=== PATIENT | male | born 1975 | race Caucasian/White ===

== ENCOUNTER 2017-12-17 15:53 | Emergency (ER) | payer BC ==
[~2017-12-17] VITALS: Ht 182.9 cm; Wt 225.9 kg
[~2017-12-17 15:53] MED LIST: AMITRIPTYLINE H75 M1 PO; CLONAZEPAM 0.50.5 M1 PO; COLACE100 MG; CYCLOBENZAPRINE5 MG; FLEXERIL PO; HYDROCODONE-AP1 EA11; IBUPROFEN 800800 M1; LISINOPRIL20 MG PO; LOVASTAT20 PO; MOBIC15 MG PO; NEURONTIN 300300 M1 PO; PANTOPRAZOLE SO40 M1 PO; PERCOCET 7.5-31 EACH PO; PHENTERMINE H37.5 MG; RANITIDINE 150150 M1; SENNA-S TABLET1 EACH PO; TRAMADOL 50 MG50 MG PO; TRAZODONE 150150 M1 PO; TRAZODONE HCL100 MG PO; TRIAMTERENE-HC1 EAC1 PO; VALTREX1000 MG PO; VIAGRA100 MG PO
[2017-12-17 16:40] LABS: ABSOLUTE BASOPHILS 0.1 thou/uL (0.0-0.2); ABSOLUTE EOSINOPHILS 0.2 thou/uL (0.0-0.7); ABSOLUTE LYMPHOCYTES 2.8 thou/uL (0.8-5.3); ABSOLUTE MONOCYTES 0.8 thou/uL (0.0-1.2); ABSOLUTE NEUTROPHILS 5.8 thou/uL (1.6-8.1); BASOPHILS 1.1 %; EOSINOPHILS 1.8 %; HEMATOCRIT 42.8 % (42.0-52.0); HEMOGLOBIN 14.3 gm/dL (14.0-18.0); LYMPHOCYTES 28.5 %; MCH 28.6 pg (26.0-34.0); MCHC 33.3 g/dL (28.0-37.0); MCV 85.8 fL (80.0-100.0); MONOCYTES 8.7 %; MPV 8.9 fl. (7.2-11.1); NUCLEATED RBCS 0 /100WBC; PLATELET COUNT* 218 thou/uL (150-400); POLYS 59.9 %; RBC 4.99 mil/uL (4.50-6.00); WBC 9.7 thou/uL (4.0-11.0)
[2017-12-17 16:47] LABS: ANION GAP 9 mmol/L (7-16); BUN 12 mg/dL (7-18); CALCIUM 9.3 mg/dL (8.5-10.1); CHLORIDE 102 mmol/L (98-107); CO2 26 mmol/L (21-32); CREATININE 0.9 mg/dL (0.6-1.3); GLUCOSE 168 mg/dL (70-99); POTASSIUM 3.9 mmol/L (3.5-5.1); SODIUM 137 mmol/L (136-145)
[2017-12-17 16:51] LABS: APTT 28.5 Seconds (25.0-31.3); PROTIME 9.9 Seconds (9.20-11.50)
[2017-12-17 17:02] LABS: ALBUMIN 3.4 g/dL (3.4-5.0); ALKALINE PHOSPHATASE 93 U/L (46-116); NT-PRO BRAIN NAT PEPTIDE 26 pg/mL (<300); SGOT 51 U/L (15-37); SGPT 88 U/L (30-65); TOTAL BILIRUBIN 0.4 mg/dL (<0.1-1.0); TOTAL PROTEIN 7.3 g/dL (6.4-8.2); TROPONIN-I LEVEL <0.06 ng/mL (<0.06)
[2017-12-17 17:22] LABS: URINE BILIRUBIN NEGATIVE (Negative); URINE BLOOD TRACE (Negative); URINE CLARITY CLEAR; URINE COLOR STRAW; URINE GLUCOSE-RANDOM NEGATIVE (Negative); URINE KETONES NEGATIVE (Negative); URINE LEUKOCYTES NEGATIVE (Negative); URINE NITRITE NEGATIVE (Negative); URINE PROTEIN NEGATIVE (Negative); URINE UROBILINOGEN 0.2 E.U./dl (0.2-1.0)
[2017-12-17 17:30] LABS: AMP/METHAMP Negative (Negative); BARBITURATES Negative (Negative); BENZODIAZEPINES Negative (Negative); COCAINE Negative (Negative); METHADONE Negative (Negative); OPIATES Negative (Negative); PCP Negative (Negative); THC Negative (Negative)
[2017-12-17] MEDS ORDERED: VISTARIL 25 MG25 M1 PO (18:36)
[2017-12-17 18:42] VITALS: BP 121/76
--- NOTE | 2017-12-18 15:56 | EKG ---
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: : 1975 Requested By: Yamilex Dumont Order Number: [id number] MD: Dhaval De Luna Measurements Intervals [place] Rate: 103 P: 38 AL: 153 QRS: -30 QRSD: 99 T: 56 QT: 318 QTc: 416 Interpretive Statements Sinus tachycardia Left axis deviation Low voltage, precordial leads Baseline wander in lead(s) V6 Compared to ECG 05/26/2013 11:52:04 Left-axis deviation now present Low QRS voltage now present Electronically Signed On 12-18-2017 15:55:59 CDT by Dhaval De Luna [email or web address] <ELECTRONICALLY SIGNED> By: Dhaval De Luna MD, [facility] 12/18/17 1555 1558 1558 Dhaval De Luna MD, [facility] /EPI
[2018-02-13] MEDS ORDERED: TRULICITY1.5 MG/0.5 SUBQ (09:39)
[2018-02-13] MEDS ORDERED: METFORMIN HCL500 MG PO (09:40)
== END 2017-12-17 18:43 | disposition home or self-care (01) ==
LOC: M.ERS 15:53
PROVIDERS: Nurse Practitioner Family
DX: R06.00 Dyspnea, unspecified (principal); R07.9 Chest pain, unspecified; R60.0 Localized edema; I10 Essential (primary) hypertension; E78.5 Hyperlipidemia, unspecified; K21.9 Gastro-esophageal reflux disease without esophagitis

== ENCOUNTER 2018-01-15 14:18 | Inpatient (IN) | payer BC ==
[~2018-01-15] VITALS: Ht 182.9 cm; Wt 228.2 kg
[~2018-01-15 14:18] MED LIST changes: +VISTARIL 25 MG25 M1 PO
[2018-01-15 14:31] VITALS: BP 146/86
[2018-01-15] MEDS ORDERED: VENTOLIN HFA 1818 GM INH (14:38)
[2018-01-15] MEDS ORDERED: ASPIRIN81 M2 PO (14:38)
[2018-01-15] MEDS ORDERED: BACTRIM DS TAB1 EACH PO (14:39)
[2018-01-15] MEDS ORDERED: LASIX 20 MG TAB20 MG PO (14:39)
[2018-01-15] MEDS ORDERED: ERGOCALCIF50000 UNIT PO (14:39)
[2018-01-15 15:06] LABS: ABSOLUTE BASOPHILS 0.1 thou/uL (0.0-0.2); ABSOLUTE EOSINOPHILS 0.2 thou/uL (0.0-0.7); ABSOLUTE LYMPHOCYTES 2.2 thou/uL (0.8-5.3); ABSOLUTE MONOCYTES 0.9 thou/uL (0.0-1.2); ABSOLUTE NEUTROPHILS 6.6 thou/uL (1.6-8.1); BASOPHILS 0.5 %; EOSINOPHILS 2.1 %; HEMATOCRIT 43.3 % (42.0-52.0); HEMOGLOBIN 14.3 gm/dL (14.0-18.0); LYMPHOCYTES 22.1 %; MCH 28.7 pg (26.0-34.0); MCHC 33.1 g/dL (28.0-37.0); MCV 86.9 fL (80.0-100.0); MONOCYTES 9.2 %; MPV 8.7 fl. (7.2-11.1); NUCLEATED RBCS 0 /100WBC; PLATELET COUNT* 264 thou/uL (150-400); POLYS 66.1 %; RBC 4.98 mil/uL (4.50-6.00); RDW-CV 15.2 % (10.5-14.5); WBC 9.9 thou/uL (4.0-11.0)
[2018-01-15 15:32] LABS: ALBUMIN 3.5 g/dL (3.4-5.0); CALCIUM 9.3 mg/dL (8.5-10.1); CREATININE 1.1 mg/dL (0.6-1.3); POTASSIUM 4.2 mmol/L (3.5-5.1); TOTAL BILIRUBIN 0.3 mg/dL (<0.1-1.0); TOTAL PROTEIN 7.4 g/dL (6.4-8.2)
[2018-01-15 16:01] LABS: PROTIME 9.7 Seconds (9.20-11.50)
[2018-01-15 17:43] VITALS: BP 146/86
[2018-01-15 17:48] VITALS: BP 122/81
--- NOTE | 2018-01-15 18:46 | NUR ---
PATIENT CAME TO THE FLOOR FROM THE ER VIA CART. VITAL SIGNS STABLE ON ROOM AIR, SOME COMPLAINTS OF PAIN THAT IS CONTROLLED WITH POWDER AND ORAL PAIN MEDICATIONS. ORIENTED TO ROOM, CALL LIGHT IN REACH, ADMISSION ASSESSMENT AND QUESTIONS ANSWERED FOR PATIENT. WILL CONTINUE TO MONITOR.
[2018-01-16 00:12] VITALS: BP 134/82
--- NOTE | 2018-01-16 05:03 | NUR ---
ASSESSMENT COMPLETE. PT SLEPT MOST OF THE NIGHT. PT DENIES NEED FOR PRN PAIN MEDICATION. IV FLUIDS INFUSING, IV ABX GIVEN ORDERED. PT STARTED ON METFORMIN TONIGHT. PT NEW ONSET OF DIABETES AND HAS NO TAKEN ANY MEDICATION FOR THIS. PT HAS DIABETIC AND NURTRITION CONSULTS ORDERED. PT IS ON ROOM AIR WITH ADEQUATE SATS, VITALS STABLE. PT HAS BEEN AFEBRILE. PT IS UP AD MARY ALICE WITH STEADY GAIT. SEE ASSESSMENT AND VITALS FOR OTHER DETAILS. CALL LIGHT WITHIN REACH, WILL CONTINUE PLAN OF CARE
[2018-01-16 08:00] VITALS: BP 139/83
[2018-01-16 08:14] LABS: URINE BILIRUBIN NEGATIVE (Negative); URINE BLOOD NEGATIVE (Negative); URINE CLARITY CLEAR; URINE COLOR ORANGE; URINE GLUCOSE-RANDOM NEGATIVE (Negative); URINE KETONES NEGATIVE (Negative); URINE LEUKOCYTES-REFLEX NEGATIVE (Negative); URINE NITRITE-REFLEX NEGATIVE (Negative); URINE PROTEIN NEGATIVE (Negative); URINE UROBILINOGEN 0.2 E.U./dl (0.2-1.0)
[2018-01-16 10:00] LABS: ABSOLUTE BASOPHILS 0.1 thou/uL (0.0-0.2); ABSOLUTE EOSINOPHILS 0.2 thou/uL (0.0-0.7); ABSOLUTE LYMPHOCYTES 2.7 thou/uL (0.8-5.3); ABSOLUTE MONOCYTES 0.6 thou/uL (0.0-1.2); ABSOLUTE NEUTROPHILS 5.4 thou/uL (1.6-8.1); EOSINOPHILS 2.5 %; HEMATOCRIT 40.3 % (42.0-52.0); HEMOGLOBIN 13.3 gm/dL (14.0-18.0); LYMPHOCYTES 29.7 %; MCH 28.7 pg (26.0-34.0); MCHC 33.1 g/dL (28.0-37.0); MCV 86.8 fL (80.0-100.0); MPV 8.7 fl. (7.2-11.1); NUCLEATED RBCS 0 /100WBC; PLATELET COUNT* 246 thou/uL (150-400); POLYS 59.8 %; RBC 4.64 mil/uL (4.50-6.00); RDW-CV 14.9 % (10.5-14.5)
[2018-01-16 10:13] LABS: ALBUMIN 3.1 g/dL (3.4-5.0); CALCIUM 8.3 mg/dL (8.5-10.1); POTASSIUM 4.2 mmol/L (3.5-5.1); TOTAL BILIRUBIN 0.3 mg/dL (<0.1-1.0); TOTAL PROTEIN 6.7 g/dL (6.4-8.2)
[2018-01-16 15:07] LABS: GLYCOHEMOGLOBIN (HGB A1C) 8.2 % (4.8-5.6)
--- NOTE | 2018-01-16 15:32 | NUR ---
WOUND CARE NOTE: CONSULT RECEIVED FOR SCROTAL WOUND CARE. PATIENT PRESENTS WITH SCROTAL AND ABDOMINAL CELLULITIS. SCROTUM IS EDEMATOUS AND INFLAMMED. NO OPEN WOUNDS NOTED. ABDOMEN WITH A COUPLE OF SCABS, BUT ARE INTACT. PATIENT STATES ABDOMEN IS NUMB AND HAS BEEN FOR A FEW WEEKS. STATES HIS ABDOMEN WAS SORE BEFORE HIS SCROTUM BECAME THIS WAY. EDUCATED PATIENT ON KEEPING BLOOD GLUCOSE TIGHTLY CONTROLLED AND THIS WOULD ASSIST WITH THE WOUND HEALING AND HELP WITH PREVENTING IN THE FUTURE, COMMUNICATED UNDERSTANDING. EDUCATED ON KEEPING SCROTUM ELEVATED AND COULD USE PILLOWS OR BLANKETS, THAT THIS WOULD HELP REDUCE THE SWELLING, COMMUNICATED UNDERSTANDING. PATIENT INQUIRED ON HEALING TIME, EDUCATED THAT IT MAY TAKE A FEW WEEKS FOR EVERYTHING TO GET BACK TO NORMAL. EDUCATED THAT IT MAY TAKE A FEW DAYS FOR HIM TO START HAVING LESS PAIN. RECOMMEND ELEVATE SCROTUM TIGHT BLOOD GLUCOSE CONTROL ENCOURAGE GOOD NUTRITION AND HYDRATION
--- NOTE | 2018-01-16 15:40 | NUR ---
WOUND CARE NOTE: DRESSING CHANGE TO RIGHT LEG. PATIENT PRESENTS WITH NEW WOUNDS TO THE RIGHT RUBIO. PROXIMAL, CENTER AND DISTAL. DISTAL WAS PREVIOUSLY A STABLE SCAB, BUT NOW HAS OPENED INTO AN ULCERATION. THIS ULCER MEASURES 3.1X1X0.4, MOIST PINK WOUND BED. DRAINING SEROUS FLUID. APPLIED OPTIFOAM AG, THEN SECURED WITH THE 4-LAYER WRAP. CENTER WOUND APPEARS A PARTIAL THICKNESS WOUND MEASURING 1.3X1.7X0.1. RED, MOIST WOUND BED, APPLIED OPTIFOAM AG UNDER A 4-LAYER WRAP. THE MOST PROXIMAL WOUND IS HEALING, MOIST, PINK WOUND BED MEASURING 1.5X0.4X0.1 APPLIED OPTIFOAM UNDER A 4-LAYER WRAP. APPLIED DRESSINGS TO OTHER WOUNDS DIRECTED. PATIENT TOLERATED DRESSING CHANGES WELL.
--- NOTE | 2018-01-16 17:10 | NUR ---
SW met with pt to complete initial assessment, introduce self, and SW role. Pt was sleeping, but awoke and was alert and oriented. Pt lives at home alone and was independent in ADLs and mobility and did not express any dc needs. Pt said his father is supportive and taking care of his dogs while pt is in the hospital. SW to follow to assist if any needs arise.
--- NOTE | 2018-01-16 18:51 | NUR ---
ASSUMED CARE THIS AM. UP AD MARY ALICE, DOES C/O SCROTAL EDEMA, SKIN INTACT, NYSTATIN APPLIED LIBERALLY. WOUND NURSE CONSULT COMPLETED, NO NEW ORDERS, UROLOGY CONSULT COMPLETED, WILL FOLLOW UP OUTPT. FAMILY AT BEDSIDE, DISCOMFORT MANAGED WELL WITH ORAL MEDICATION. NYASIA IV ABT AND IVF WITHOUT DIFF. CALL LIGHT IN REACH, CONT POC.
[2018-01-16 20:30] VITALS: BP 151/88
[2018-01-17 04:12] LABS: HEMATOCRIT 39.9 % (42.0-52.0); HEMOGLOBIN 13.2 gm/dL (14.0-18.0); MCH 28.6 pg (26.0-34.0); MCHC 33.1 g/dL (28.0-37.0); MCV 86.4 fL (80.0-100.0); RBC 4.62 mil/uL (4.50-6.00); WBC 8.2 thou/uL (4.0-11.0)
[2018-01-17 04:28] LABS: ALBUMIN 2.9 g/dL (3.4-5.0); CALCIUM 8.7 mg/dL (8.5-10.1); MAGNESIUM 1.7 mg/dL (1.8-2.4); POTASSIUM 4.4 mmol/L (3.5-5.1); TOTAL BILIRUBIN 0.3 mg/dL (<0.1-1.0); TOTAL PROTEIN 6.2 g/dL (6.4-8.2)
--- NOTE | 2018-01-17 06:21 | NUR ---
PT SLEPT AT INTERVALS DURING THE NIGHT, IV FLUIDS INFUSED, NEW IV PLACED THIS AM, SCROTUM ELEVATED WHILE IN CHAIR, ESTHER CARE DONE AND NYSTATIN APPLIED LAST NIGHT AND THIS MORNING, UP AD MARY ALICE, PLEASANT, CALL LIGHT IN REACH, WILL CONTINUE TO MONITOR
[2018-01-17 08:00] VITALS: BP 143/68
[2018-01-17 16:08] VITALS: BP 130/79
--- NOTE | 2018-01-17 17:14 | CON ---
[address] [address] CONSULTATION Name: HUMA AGUILERA Room: [address] IN .#: [id number] Admission: 01/15/18 Attend Phys: Yoselin Oscar MD Discharge: Date of : 71 Report #: [id number] THIS REPORT FOR: //name// CC: Yoselin Abrams DATE OF SERVICE: 01/16/2018 UROLOGY CONSULTATION REASON FOR CONSULTATION: Scrotal cellulitis. HISTORY OF PRESENT ILLNESS: The patient is a 42-year-old morbidly obese gentleman who was admitted for evaluation of worsening scrotal pain and swelling. He was placed on oral antibiotics by his PCP without improvement. He denies any fever. He has a new diagnosis of diabetes. He reports no trauma. It just suddenly started 2 days ago. PAST MEDICAL HISTORY: Significant for diabetes, anxiety, asthma, dyspnea, hypertension, sleep apnea, hypercholesterolemia, morbid obesity, left inguinal hernia, peripheral edema, GERD, hypogonadism. PAST SURGICAL HISTORY: Includes hernia repairs, ACL repair and shoulder surgery. MEDICATIONS AT HOME: Were reviewed. Please see inpatient medical record. REVIEW OF SYSTEMS: Twelve-point review of systems is performed and is negative except as noted above in the HPI. FAMILY HISTORY: Noncontributory. SOCIAL HISTORY: The patient denies tobacco use. Drinks alcohol on special occasions. Denies recreational drug use. ALLERGIES: None. PHYSICAL EXAMINATION: VITAL SIGNS: Temperature is 36.8. He has been afebrile since admission yesterday. Pulse is 90, blood pressure 139/83, respirations 20. HEENT: Normocephalic, atraumatic. LUNGS: Respirations unlabored. HEART: Regular. ABDOMEN: Soft, morbidly obese, nontender. He has extremely large pannus. EXTREMITIES: He has peripheral edema. GENITOURINARY: He has moderate to severe scrotal edema. [place] [address] CONSULTATION Name: HUMA AGUILERA Room: [address] IN [facility]#: [id number] Admission: 01/15/18 Attend Phys: Yoselin Oscar MD Discharge: Date of : 71 Report #: [id number] somewhat erythematous, but not overly impressive. There is no fluctuance or evidence of abscess. There is no evidence of any Magdaleno gangrene. Perineum is intact. NEUROLOGIC: He is intact. LABORATORY DATA: His white count is normal at 9.0, hemoglobin is 13.3, platelets 246. His BMP is essentially normal with a creatinine of 1.0. His sugars have been in the 100s-200s. Urinalysis is completely negative. He had a testicular ultrasound today, which showed normal bilateral testes and epididymis. No hydrocele, but did show marked thickening of the scrotal skin. No evidence of any abscess. ASSESSMENT AND PLAN: 1. Scrotal cellulitis. 2. Scrotal edema. 3. Morbid obesity. At this time, there appears to be nothing surgical. Agree with antibiotics to cover cellulitis. In terms of his scrotal edema, there is really nothing to do for this other than scrotal elevation. It is not uncommon for morbidly obese men such as he to have chronic scrotal edema. <ELECTRONICALLY SIGNED> By: Tash Mendoza MD 01/17/18 1714 [id number] [id number] Mendoza MD /nt
--- NOTE | 2018-01-17 18:53 | NUR ---
RESUMED CARE THIS AM. DISCOMFORT MANAGED WELL WITH ORAL MEDICATION, BLOOD SUGAR MANAGED WELL WITH DIET AND INSULIN. UP AD MARY ALICE, TO CHAIR FOR MEALS, NYASIA IVF AND IV ANTIBIOTICS. COMPLIANT WITH CARE, CALL LIGHT IN REACH, CONT POC.
[2018-01-17 23:49] VITALS: BP 109/55
--- NOTE | 2018-01-18 04:44 | NUR ---
PATIENT HAS REMAINED ALERT AND ORIENTED X 4 THROUGHOUT THE SHIFT. RESTING QUIETLY ON HOURLY ROUNDS. UP EARLY AM IN CHAIR. PATIENT HAS KEPT SCROTUM ELEVATED WHILE IN BED OVERNIGHT. HAS DENIED NEED FOR PAIN MEDICATION. MEDS/IVF'S/ANTIBIOTICS PER ORDERS. PATIENT REPORTING IMPROVED EDEMA AND REDDNESS OF SCROTUM. NYSTATIN POWDER ALSO UTILIZED. VITAL SIGNS STABLE. CONTINUE TO MONITOR.
[2018-01-18 10:01] VITALS: BP 118/64
[2018-01-18 16:11] VITALS: BP 152/87
--- NOTE | 2018-01-18 18:55 | NUR ---
RESUMED CARE THIS AM. NO DISTRESS NOTED, SCROTUM LOOKS MUCH BETTER, NYASIA IV FLUIDS AND ABT WELL, GLUCOSE MANAGED WELL WITH MEDICATION, ANTICIPATE DISCHARGE TO HOME TOMORROW, DENIES PAIN, CALL LIGHT IN REACH, CONT POC.
[2018-01-19 00:39] VITALS: BP 141/90
--- NOTE | 2018-01-19 04:40 | NUR ---
PATIENT HAS REMAINED ALERT AND ORIENTED X 4 THROUGHOUT THE SHIFT AND RESTING QUIETLY ON HOURLY ROUNDS. UP INDEPENDENTLY IN THE ROOM. SLOW IMPROVEMENT SCROTAL EDEMA/REDDNESS. PATIENT KEEPS SCROTUM ELEVATED WHEN IN BED. IVF'S AND ANTIBIOTIC/ANTI-FUNGAL PROVIDED ORDERED. VITAL SIGNS STABLE/AFEBRILE. PATIENT IS HOPING FOR EARLY DISCHARGE THIS AM. MESSAGE TO CM REGARDING PATIENT REQUEST FOR ASSIST IN GETTING INFOMATION ON INSURANCE COVERAGE OF DIABETIC SUPPLIES. PATIENT STATES HE WAS IN THE PROCESS OF SETTING UP DIABETIC EDUCATION WITH HIS PRIMARY PHYSICIAN WHEN WAS ADMITTED TO HOSPITAL. CONTINUE TO MONITOR.
[2018-01-19 08:00] VITALS: BP 135/71
[2018-01-19 09:50] VITALS: BP 135/71
[2018-01-19] MEDS ORDERED: GLUCOTROL5 MG PO (10:04)
[2018-01-19] MEDS ORDERED: HYDROCODON-ACE1 EAC7 PO (10:04)
[2018-01-19] MEDS ORDERED: NYAMYC15 GM TOP ×2 (10:04→10:26)
[2018-01-19] MEDS ORDERED: DOXYCYCLINE 10100 MG PO ×2 (10:04→10:26)
[2018-01-19] MEDS ORDERED: DIFLUCAN200 MG PO (10:07)
[2018-01-19] MEDS ORDERED: DIFLUCAN100 MG PO (10:27)
[2018-01-19] MEDS ORDERED: HYDROCODONE-AP1 EAC6 PO (10:28)
[2018-01-19 10:31] VITALS: BP 135/71
[2018-01-19 10:33] VITALS: BP 135/71
--- NOTE | 2018-01-19 11:48 | NUR ---
Pt to dc home alone today. Since newly diagnosed diabetes, pt being sent home with glucometer and test strips; pt wanted to make sure that his test strips will be covered by his insurance and that the glucometer he was issued would be the correct match to the covered test strips. [facility] that was [facility] in pt insurance and was told that they use One Touch or Easy Touch. PIA discussed with pt who said he changed his pharmacy to [facility] pharmacy on at [facility] in [place], [place]. Pt said he would call to make sure of the preferred test strips brand and pt aware that he could purchase a different glucometer if necessary. Pt did not have any other needs or concerns and was ready to dc.
[2018-01-19 12:18] VITALS: BP 135/71
--- NOTE | 2018-01-19 12:18 | NUR ---
ALERT AND ORIENTED X4. UP AD MARY ALICE IN ROOM. IV DC'D. DENIES NEED FOR PAIN MEDICATION. DENIES NAUSEA. TOLERATING DIET. GLUCOMETER RECIEVED AT DC. ALL PERSONAL ITEMS LEFT WITH PATIENT. DISCHARGE INSTRUCTIONS, PRESCRIPTIONS, AND NEW MEDICATION INFORMATION SENT WITH PATIENT. VSS ON ROOM AIR. HOURLY ROUNDS HAVE BEEN MAINTAINED THROUGHOUT SHIFT. LEFT VIA CAR.
[2018-02-13] MEDS ORDERED: TRULICITY1.5 MG/0.5 SUBQ (09:39)
[2018-02-13] MEDS ORDERED: METFORMIN HCL500 MG PO (09:40)
== END 2018-01-19 12:00 | disposition home or self-care (01) | DRG 728 ==
LOC: M.ERS 14:18 → M.3W 16:43 → M.TBA-ER 16:43 → M.3W 17:35 → M.ORTHSURG 01-16 15:44
PROVIDERS: Nurse Practitioner Family; ADMIT Internal Medicine
DX: N49.2 Inflammatory disorders of scrotum (principal); Z68.44 Body mass index [BMI] 60.0-69.9, adult; R65.10 Systemic inflammatory response syndrome (SIRS) of non-infectious origin without acute organ dysfunction; L03.311 Cellulitis of abdominal wall; E66.01 Morbid (severe) obesity due to excess calories; I10 Essential (primary) hypertension; E78.5 Hyperlipidemia, unspecified; K21.9 Gastro-esophageal reflux disease without esophagitis; G47.00 Insomnia, unspecified; E11.9 Type 2 diabetes mellitus without complications; F41.9 Anxiety disorder, unspecified; J45.909 Unspecified asthma, uncomplicated; E78.00 Pure hypercholesterolemia, unspecified; E83.42 Hypomagnesemia; Z79.899 Other long term (current) drug therapy; Z79.82 Long term (current) use of aspirin

== ENCOUNTER 2018-01-21 12:25 | Inpatient (IN) | payer BC ==
[~2018-01-21] VITALS: Ht 182.9 cm; Wt 224.1 kg
[~2018-01-21 12:25] MED LIST changes: +ASPIRIN81 M2 PO; +BACTRIM DS TAB1 EACH PO; +DIFLUCAN100 MG PO; +DIFLUCAN200 MG PO; +DOXYCYCLINE 10100 MG PO; +ERGOCALCIF50000 UNIT PO; +GLUCOTROL5 MG PO; +HYDROCODON-ACE1 EAC7 PO; +HYDROCODONE-AP1 EAC6 PO; +LASIX 20 MG TAB20 MG PO; +NYAMYC15 GM TOP; +VENTOLIN HFA 1818 GM INH
[2018-01-21 12:40] VITALS: BP 125/87
[2018-01-21 13:14] LABS: ABSOLUTE BASOPHILS 0.1 thou/uL (0.0-0.2); ABSOLUTE EOSINOPHILS 0.2 thou/uL (0.0-0.7); ABSOLUTE LYMPHOCYTES 2.5 thou/uL (0.8-5.3); ABSOLUTE MONOCYTES 0.8 thou/uL (0.0-1.2); ABSOLUTE NEUTROPHILS 6.3 thou/uL (1.6-8.1); BASOPHILS 1.3 %; EOSINOPHILS 2.1 %; HEMATOCRIT 44.4 % (42.0-52.0); HEMOGLOBIN 14.9 gm/dL (14.0-18.0); LYMPHOCYTES 25.1 %; MCH 29.1 pg (26.0-34.0); MCHC 33.6 g/dL (28.0-37.0); MCV 86.6 fL (80.0-100.0); MONOCYTES 7.7 %; MPV 8.7 fl. (7.2-11.1); NUCLEATED RBCS 0 /100WBC; PLATELET COUNT* 283 thou/uL (150-400); POLYS 63.8 %; RBC 5.13 mil/uL (4.50-6.00); RDW-CV 15.1 % (10.5-14.5)
[2018-01-21 13:28] LABS: CALCIUM 9.1 mg/dL (8.5-10.1); POTASSIUM 4.2 mmol/L (3.5-5.1)
[2018-01-21 13:32] LABS: ALBUMIN 3.7 g/dL (3.4-5.0); TOTAL BILIRUBIN 0.4 mg/dL (<0.1-1.0); TOTAL PROTEIN 7.9 g/dL (6.4-8.2)
[2018-01-21 14:00] LABS: URINE BILIRUBIN NEGATIVE (Negative); URINE BLOOD NEGATIVE (Negative); URINE CLARITY CLEAR; URINE COLOR YELLOW; URINE GLUCOSE-RANDOM NEGATIVE (Negative); URINE KETONES NEGATIVE (Negative); URINE LEUKOCYTES-REFLEX NEGATIVE (Negative); URINE NITRITE-REFLEX NEGATIVE (Negative); URINE PROTEIN NEGATIVE (Negative); URINE UROBILINOGEN 0.2 E.U./dl (0.2-1.0)
[2018-01-21 16:30] VITALS: BP 95/67
[2018-01-21 16:55] VITALS: BP 123/88
[2018-01-21 21:20] VITALS: BP 124/94
[2018-01-22 04:47] LABS: HEMATOCRIT 39.7 % (42.0-52.0); HEMOGLOBIN 13.1 gm/dL (14.0-18.0); MCH 28.7 pg (26.0-34.0); MCV 86.9 fL (80.0-100.0); RBC 4.57 mil/uL (4.50-6.00); RDW-CV 14.8 % (10.5-14.5); WBC 9.4 thou/uL (4.0-11.0)
[2018-01-22 04:56] LABS: CALCIUM 8.5 mg/dL (8.5-10.1); CREATININE 0.9 mg/dL (0.6-1.3); MAGNESIUM 1.8 mg/dL (1.8-2.4); POTASSIUM 4.2 mmol/L (3.5-5.1)
[2018-01-22 07:40] VITALS: BP 122/81
[2018-01-22 16:28] VITALS: BP 121/74
[2018-01-22 22:30] VITALS: BP 110/58
[2018-01-23 04:42] LABS: CALCIUM 8.6 mg/dL (8.5-10.1); CREATININE 0.8 mg/dL (0.6-1.3); MAGNESIUM 1.8 mg/dL (1.8-2.4); POTASSIUM 4.7 mmol/L (3.5-5.1)
[2018-01-23 06:05] LABS: HEPATITIS B SURFACE AG Negative (Negative)
--- NOTE | 2018-01-23 07:58 | CON ---
[facility] [address] [place] [address] CONSULTATION Name: HUMA AGUILERA Room: [address] IN M.R.#: [id number] Admission: 01/21/18 Attend Phys: Demetrius Nielsen MD Discharge: Date of : 71 Report #: [id number] THIS REPORT FOR: //name// CC: Candice Kahna Jose Alberto DATE OF SERVICE: 01/22/2018 INFECTIOUS DISEASE CONSULTATION ATTENDING PHYSICIAN: Demetrius Nielsen M.D. REASON FOR EVALUATION: Scrotal cellulitis. HISTORY OF PRESENT ILLNESS: Chart reviewed, patient examined. This is a 42-year-old gentleman who is morbidly obese, complains of pain and marked swelling of his scrotum. Of note, he had noted over the last several weeks having increasing redness associated with large pannus into the scrotum. He thought that this was "due to him being fat." However, he was noted to have some progressive signs and symptoms including pain and was evaluated by primary care provider and felt he had a cellulitis. He was placed on oral therapy, did not improve. On repeat, he was instructed to go to the ER where he was admitted having been discharged earlier this week after 5 days including parenteral antibiotics. He had improved to some degree; however, at home, he noted marked reversal with increasing pain, swelling of the scrotum, in particular. It is not clear if he had systemic illness. He was again readmitted, given dose of vancomycin and fluconazole, not overtly toxic. Denies any pulmonary or gastrointestinal complaints. ALLERGIES: None known. MEDICATIONS: Include ergocalciferol, insulin, fluconazole, furosemide, aspirin, meloxicam, lisinopril, triamterene and hydrochlorothiazide combination, glipizide, pantoprazole, benzonatate, trazodone, atorvastatin, p.r.n. analgesics and antiemetics. PAST MEDICAL HISTORY: Fairly recent diagnosis of diabetes mellitus, obstructive sleep apnea, hypertension, hyperlipidemia, reflux, previous hernia repair x 2, recently 2016. SOCIAL HISTORY: Nonsmoker. Occasional ethanol. FAMILY HISTORY: Noncontributory. REVIEW OF SYSTEMS: [place] [address] CONSULTATION Name: HUMA AGUILERA Room: [address]#: [id number] Admission: 01/21/18 Attend Phys: Demetrius Nielsen MD Discharge: Date of : 71 Report #: [id number] PHYSICAL EXAMINATION: GENERAL: He is pleasant, alert, cooperative. He is morbidly obese. He is sitting in chair, in mild distress. VITAL SIGNS: Temperature 97.6, pulse 93, respirations 16, blood pressure 122/81. SKIN: Warm, dry. HEENT: Unremarkable. NECK: Supple. LUNGS: Diminished breath sounds, generally clear. HEART: Regular. Again, distant. No appreciated murmur. ABDOMEN: Obese with large pannus. There is clearly on the underside of the pannus some induration, chronic dermopathy noted, I think due to the overall stress and may have some degree of panniculitis, scrotum is markedly swollen. It is palpably tender. I do not appreciate any fluctuant areas or focal areas that would suggest perhaps an abscess. GENITOURINARY: Deferred. RECTAL: Deferred. LABORATORY DATA: Blood cultures sterile thus far. Electrolytes: Sodium 134, potassium 4.2, chloride 100, bicarbonate is 24, BUN and creatinine 13 and 0.9, glucose of 170. Estimated GFR of 92. Lactic acid initially of 2.1, repeat was 1.4. CBC: White count of 9.4, H and H 13.1 and 39.7, platelets of 239. Urinalysis unremarkable. Liver function, elevated with AST of 68, ALT of 142, total bilirubin of 0.4. ASSESSMENT: Inflammatory process involving the scrotum, large pannus. Agree with empiric antimicrobial, apparently had failed outpatient with doxycycline and fluconazole, this may be more of a situation of position. Try to elevate the scrotum when possible. He is not overtly toxic at this point. He had initially undergone a testicular ultrasound on 01/16/2018. At this point, I do not see any evidence of abscess or surgical intervention and see how he does clinically. In the event of lack of resolution, we may need to consider biopsy to exclude noninfectious causes in particular. <ELECTRONICALLY SIGNED> By: Que Bhat MD 01/23/18 0758 1407 [id number] Bhat MD /nt
[2018-01-23 08:30] VITALS: BP 120/59
[2018-01-23 15:55] VITALS: BP 125/77
[2018-01-23 19:45] VITALS: BP 98/51
[2018-01-24 03:54] LABS: HEMATOCRIT 39.7 % (42.0-52.0); HEMOGLOBIN 13.2 gm/dL (14.0-18.0); MCH 28.7 pg (26.0-34.0); MCHC 33.1 g/dL (28.0-37.0); MCV 86.8 fL (80.0-100.0); MPV 8.9 fl. (7.2-11.1); RBC 4.58 mil/uL (4.50-6.00); RDW-CV 15.1 % (10.5-14.5); WBC 7.4 thou/uL (4.0-11.0)
[2018-01-24 04:19] LABS: CALCIUM 8.7 mg/dL (8.5-10.1); CREATININE 0.9 mg/dL (0.6-1.3); MAGNESIUM 1.9 mg/dL (1.8-2.4); POTASSIUM 4.3 mmol/L (3.5-5.1)
[2018-01-24 08:00] VITALS: BP 120/69
[2018-01-24 15:33] VITALS: BP 126/75
[2018-01-25 03:47] LABS: HEMATOCRIT 40.2 % (42.0-52.0); HEMOGLOBIN 13.3 gm/dL (14.0-18.0); MCH 28.4 pg (26.0-34.0); MCHC 33.1 g/dL (28.0-37.0); MCV 85.9 fL (80.0-100.0); MPV 8.9 fl. (7.2-11.1); RBC 4.69 mil/uL (4.50-6.00); RDW-CV 14.9 % (10.5-14.5); WBC 7.7 thou/uL (4.0-11.0)
[2018-01-25 04:07] LABS: CREATININE 0.9 mg/dL (0.6-1.3); POTASSIUM 4.6 mmol/L (3.5-5.1)
[2018-01-25 15:52] VITALS: BP 137/70
[2018-01-25 20:15] VITALS: BP 96/52
[2018-01-25 23:45] VITALS: BP 108/56
[2018-01-26 09:32] VITALS: BP 112/62
[2018-01-26 13:45] VITALS: BP 112/62
[2018-02-13] MEDS ORDERED: TRULICITY1.5 MG/0.5 SUBQ (09:39)
[2018-02-13] MEDS ORDERED: METFORMIN HCL500 MG PO (09:40)
== END 2018-01-26 16:00 | disposition home or self-care (01) | DRG 872 ==
LOC: M.ERS 12:25 → M.ORTHSURG 14:42 → M.TBA-ER 14:42 → M.ORTHSURG 15:09
PROVIDERS: Family Medicine; Nurse Practitioner Family; Specialist; ADMIT Internal Medicine
DX: A41.9 Sepsis, unspecified organism (principal); Z68.44 Body mass index [BMI] 60.0-69.9, adult; N49.2 Inflammatory disorders of scrotum; I10 Essential (primary) hypertension; E78.5 Hyperlipidemia, unspecified; K21.9 Gastro-esophageal reflux disease without esophagitis; E11.9 Type 2 diabetes mellitus without complications; G47.33 Obstructive sleep apnea (adult) (pediatric); I87.8 Other specified disorders of veins; E66.01 Morbid (severe) obesity due to excess calories; Z79.82 Long term (current) use of aspirin; Z79.899 Other long term (current) drug therapy

== ENCOUNTER → 2018-02-13 | Outpatient (CLI) | payer BC ==
[~2018-02-13] VITALS: Ht 182.9 cm; Wt 222.3 kg
[~2018-02-13] MED LIST changes: +AUGMENTIN 875-1 EACH PO; +DIFLUCAN150 MG PO; +METFORMIN HCL500 MG PO; +MINOCYCLINE HC100 M2 PO; +NORCO 5-325 TA1 EACH PO; +TRULICITY1.5 MG/0.5 SUBQ
[2018-02-13 09:03] VITALS: BP 141/57
[2018-02-13 09:38] LABS: HEMATOCRIT 44.1 % (42.0-52.0); HEMOGLOBIN 14.5 gm/dL (14.0-18.0); MCH 28.7 pg (26.0-34.0); MCHC 32.9 g/dL (28.0-37.0); MCV 87.2 fL (80.0-100.0); MPV 9.8 fl. (7.2-11.1); RBC 5.06 mil/uL (4.50-6.00); RDW-CV 14.4 % (10.5-14.5); WBC 11.3 thou/uL (4.0-11.0)
[2018-02-13 09:43] LABS: ANION GAP 12 mmol/L (7-16); APTT 29.4 Seconds (25.0-31.3); BUN 16 mg/dL (7-18); CALCIUM 9.1 mg/dL (8.5-10.1); CHLORIDE 99 mmol/L (98-107); CO2 27 mmol/L (21-32); GLUCOSE 112 mg/dL (70-99); POTASSIUM 3.7 mmol/L (3.5-5.1); SODIUM 138 mmol/L (136-145)
[2018-02-13 09:47] LABS: ALBUMIN 3.7 g/dL (3.4-5.0); ALKALINE PHOSPHATASE 88 U/L (46-116); CHOLESTEROL 154 mg/dL (<200); HDL CHOLESTEROL 46 mg/dL (>40); LDL CHOLESTEROL 89 mg/dL (<100); SGOT 46 U/L (15-37); SGPT 84 U/L (30-65); TC:HDL 3.3 Ratio (Not establshd); TOTAL BILIRUBIN 0.4 mg/dL (<0.1-1.0); TRIGLYCERIDE 95 mg/dL (<150); VLDL 19 mg/dL (<40)
[2018-02-13 09:48] LABS: SERUM ASSESSMENT Clear
[2018-02-13 09:51] VITALS: BP 143/78
[2018-02-13 11:52] VITALS: BP 140/88
[2018-02-13 12:29] VITALS: BP 118/77
[2018-02-13 12:49] VITALS: BP 124/73
[2018-02-13 13:00] VITALS: BP 124/71
--- NOTE | 2018-02-13 17:09 | EKG ---
[place] [address] ELECTROCARDIOGRAM REPORT Name: HUMA AGUILERA Room: [facility]#: [id number] Admission: 02/13/18 Attend Phys: Candiec Hadley NP [facility] Discharge: Date of : 71 Report #: [id number] THIS REPORT FOR: //name// [facility] Test Date: 2018-02-13 Test Time: 09:13:50 Pat Name: HUMA AGUILERA Department: Room: Gender: M [employer]: : 1975 Requested By: Kye Melo Order Number: [id number] Reading MD: Kye Melo Measurements Intervals [place] Rate: 98 P: 18 [place]: 162 QRS: -23 QRSD: 101 T: 37 QT: 351 QTc: 449 Interpretive Statements Sinus rhythm Borderline left axis deviation Low voltage, precordial leads Baseline wander in lead(s) V3 Compared to ECG 12/17/2017 15:58:59 Sinus tachycardia no longer present Electronically Signed On 02-13-2018 17:09:21 CDT by Kye Melo [email or web address] <ELECTRONICALLY SIGNED> By: Kye Melo MD, [facility] 02/13/18 1709 Kye Melo MD, [facility] /EPI
--- NOTE | 2018-02-13 17:40 | CARD ---
[address] [address] CARDIAC CATH REPORT Name: HUMA AGUILERA Samina [id number] Admission: 02/13/18 Attend Phys: Candice Hadley NP [place] Discharge: Date of : 71 Report #: [id number] THIS REPORT FOR: //name// APPROVED REPORT Study performed: 02/13/2018 10:38:38 Patient Details Patient Status: Out-Patient Room #: The patient is a 42 year-old male Event Personnel Kye Melo Loom Changer, Shaneka Dixon RN RN, Izabella Pardo, Cassi Ponce RTJose David Monitor Procedures Performed Art Access - R radial artery Left Heart Cath w/or w/o Coronaries [id number] [facility] Supravalvular Aortography Injection [id number] ISVA Hemostasis with Hemoband Procedure Narrative The patient was brought electively to the Cardiac Catheterization Laboratory and was prepped and draped in a sterile manner. The right wrist was infiltrated with 2% Lidocaine subcutaneous anesthesia. A Slender Glidesheath sheath was inserted into the right radial artery. Coronary angiography was performed using coronary diagnostic catheters. The right coronary system was accessed and visualized with a [place] 4.0 6fr Diagnostic catheter. The left coronary system was accessed and visualized with a Diagnostic catheter. The left ventricle was accessed and visualized with a Diagnostic catheter. Left ventricular/Aortic Valve gradient assessed via catheter pullback. Left ventriculogram was performed in ARRIAZA projection. The patient tolerated the procedure well and there were no complications associated with the procedure. Study was techinically challenging because of pts body size, via right radial access had poor imaging of left system , ultimately a non selective root aortogram was used to visualize left system subselectively Intraoperative Conscious Sedation Sedation start time: 10:46 Case end Time: 11:29 Fentanyl 100 mcg Versed 2 mg Fluoro Time: 23 minutes Dose: DAP [id number] cGycm2 3262 [place] [address] CARDIAC CATH REPORT Name: HUMA AGUILERA Room: [facility]#: [id number] Admission: 02/13/18 Attend Phys: Candice Hadley NP [facility] Discharge: Date of : 71 Report #: [id number] Contrast Type and Amount: Omnipaque 115 ml [place] Artery Percent Stenosis Left Main: 0 % Prox LAD: 0 % Mid/Distal LAD: 0 % Circumflex: % RCA: % Ramus: % Diagnostic Cath Left Main normal LAD proximal and mid body normal ,apical poorly visualized Diagonal 1 normal Circumflex normal proximal and mid body OM1 normal Right Coronary normal Left Ventriculography The left ventricle is normal in size with normal contractility. The left ventricular ejection fraction is estimated to be 55-60%. Hemodynamics The aortic pressure is 110/75 mmHg with a mean of mmHg. The left ventricular pressure is 123/4 mmHg with a mean of mmHg. The left ventricular end diastolic pressure is 10 mmHg. There was no gradient across the aortic valve upon pullback. Pullback from the left ventricle to the aorta revealed no gradient across the aortic valve. Conclusion normal coronary arteries normal LV function technically limited study, a coronary CTA maybe utilized if clinically indicated <ELECTRONICALLY SIGNED> By: Kye Melo MD, [facility] 02/13/18 1740 [id number] Melo MD, [facility] /INF
--- NOTE | 2018-02-18 08:49 | H ---
[place] [address] HISTORY AND PHYSICAL Name: ALEHUMA L Room: [facility]#: [id number] Admission: 02/13/18 Attend Phys: Candice Alejandra Discharge: Date of : 71 Report #: [id number] THIS REPORT FOR: //name// CC: Candice Melo DATE OF SERVICE: 02/13/2018 REQUESTING PHYSICIAN: Dr. Leon Corona. CHIEF COMPLAINT: Chest pain, abnormal stress test. HISTORY OF PRESENT ILLNESS: The patient is a 42-year-old morbidly obese man with diabetes, high blood pressure, had been having shortness of breath and chest discomfort and questionable abnormal ECG, subsequent nuclear stress test, which had to be performed at [facility] because of his weight. It showed a reversible inferior defect. Based on this, a cardiac catheterization was recommended. The risks and benefits of the procedure described to the patient in lay terms. The patient elects to proceed. PAST MEDICAL HISTORY: Significant for anxiety, back pain, erectile dysfunction, hypertension, hyperlipidemia, diabetes mellitus type 2. PAST SURGICAL HISTORY: Prior knee surgery and shoulder surgery. FAMILY HISTORY: Positive for neuropathy, diabetes, stroke, cancer. SOCIAL HISTORY: He is a never smoker. Rarely drinks. HOME MEDICATIONS: Include Albuterol, clonazepam, Flexeril, lisinopril 40 mg daily, lovastatin 20 mg daily, Meloxicam 15 mg daily, Protonix 40 mg daily, Viagra p.r.n., HCTZ, triamterene 37.5/25 mg daily, tramadol p.r.n., Lasix 20 mg daily. PHYSICAL EXAMINATION: VITAL SIGNS: Blood pressure 118/70, weight is 482 pounds, sinus rhythm with heart rate 100. GENERAL: Morbidly obese adult male, alert, no apparent distress. NECK: Supple. No jugular venous distention. CARDIOVASCULAR: Regular. I cannot hear a murmur, rub or gallop. LUNGS: Clear to auscultation. ABDOMEN: Nontender. EXTREMITIES: No peripheral edema. LABORATORY DATA: ECG demonstrates a sinus rhythm, [place] [address] HISTORY AND PHYSICAL Name: HUAM AGUILERA Room: [facility]#: [id number] Admission: 02/13/18 Attend Phys: Candice Hadley NP [facility] Discharge: Date of : 71 Report #: [id number] IMPRESSION: 1. Chest pain. 2. Abnormal stress test. 3. Hypertension. 4. Hyperlipidemia. 5. Diabetes mellitus. Based on his extensive risk factor profile and abnormal stress test, we will proceed with diagnostic cardiac catheterization. The risks and benefits were described to the patient in lay terms. <ELECTRONICALLY SIGNED> By: Kye Melo MD, [facility] 02/18/18 0849 1136 [id number] Melo MD, [facility] /nt
== END | disposition home or self-care (01) ==
LOC: M.CL 08:44
PROVIDERS: Internal Medicine Cardiovascular Disease
DX: R94.39 Abnormal result of other cardiovascular function study (principal); I10 Essential (primary) hypertension; E11.9 Type 2 diabetes mellitus without complications; E78.5 Hyperlipidemia, unspecified; F41.9 Anxiety disorder, unspecified; E66.01 Morbid (severe) obesity due to excess calories; Z98.890 Other specified postprocedural states; Z80.9 Family history of malignant neoplasm, unspecified; Z83.3 Family history of diabetes mellitus; Z82.3 Family history of stroke; Z79.899 Other long term (current) drug therapy; Z68.43 Body mass index [BMI] 50.0-59.9, adult; Z79.82 Long term (current) use of aspirin; Z79.891 Long term (current) use of opiate analgesic

== ENCOUNTER 2018-04-06 20:58 | Emergency (ER) | payer BC ==
[~2018-04-06] VITALS: Ht 182.9 cm; Wt 217.7 kg
[~2018-04-06 20:58] MED LIST changes: -AUGMENTIN 875-1 EACH PO; -DIFLUCAN150 MG PO; -MINOCYCLINE HC100 M2 PO; -NORCO 5-325 TA1 EACH PO
[2018-04-06] MEDS ORDERED: MINOCYCLINE HC100 M2 PO (21:45)
[2018-04-06 22:01] LABS: BE 0.1 mmol/L (-2 to +3); HCO3 22.1 mmol/L (22.0-26.0); PCO2 28.9 mmHg (35.0-45.0); PO2 92.8 mmHg (75.0-100.0); pH 7.501 (7.340-7.450)
[2018-04-06 22:26] LABS: ABSOLUTE BASOPHILS 0.1 thou/uL (0.0-0.2); ABSOLUTE EOSINOPHILS 0.3 thou/uL (0.0-0.7); ABSOLUTE LYMPHOCYTES 2.3 thou/uL (0.8-5.3); ABSOLUTE MONOCYTES 0.8 thou/uL (0.0-1.2); ABSOLUTE NEUTROPHILS 5.9 thou/uL (1.6-8.1); BASOPHILS 1.1 %; EOSINOPHILS 3.2 %; HEMOGLOBIN 13.7 gm/dL (14.0-18.0); LYMPHOCYTES 24.6 %; MCH 28.1 pg (26.0-34.0); MCHC 32.6 g/dL (28.0-37.0); MCV 86.4 fL (80.0-100.0); MONOCYTES 8.4 %; MPV 9.4 fl. (7.2-11.1); NUCLEATED RBCS 0 /100WBC; PLATELET COUNT* 274 thou/uL (150-400); POLYS 62.7 %; RBC 4.87 mil/uL (4.50-6.00); RDW-CV 15.1 % (10.5-14.5); WBC 9.4 thou/uL (4.0-11.0)
[2018-04-06 22:31] LABS: CALCIUM 9.2 mg/dL (8.5-10.1); POTASSIUM 4.3 mmol/L (3.5-5.1)
[2018-04-06 22:35] LABS: ALBUMIN 3.3 g/dL (3.4-5.0); MAGNESIUM 1.7 mg/dL (1.8-2.4); TOTAL BILIRUBIN 0.3 mg/dL (<0.1-1.0)
[2018-04-06] MEDS ORDERED: AUGMENTIN 875-1 EACH PO (23:29)
[2018-04-07] MEDS ORDERED: NORCO 5-325 TA1 EACH PO (00:28)
[2018-04-07] MEDS ORDERED: DIFLUCAN150 MG PO (00:28)
[2018-04-07 00:43] VITALS: BP 130/73
== END 2018-04-07 00:44 | disposition home or self-care (01) ==
LOC: M.ERS 20:58
PROVIDERS: Personal Emergency Response Attendant
DX: L03.311 Cellulitis of abdominal wall (principal); E11.9 Type 2 diabetes mellitus without complications; I10 Essential (primary) hypertension; G47.30 Sleep apnea, unspecified; E78.5 Hyperlipidemia, unspecified; E66.9 Obesity, unspecified; Z68.45 Body mass index [BMI] 70 or greater, adult

== ENCOUNTER → 2020-07-04 | Outpatient (CLI) | payer OTHER ==
[~2020-07-04] MED LIST changes: +AUGMENTIN 875-1 EACH PO; +DIFLUCAN150 MG PO; +MINOCYCLINE HC100 M2 PO; +NORCO 5-325 TA1 EACH PO
--- NOTE | 2020-07-25 14:36 | PAINCON ---
[address] [address] PAIN MANAGEMENT CONSULTATION Name: HUMA AGUILERA Room: [facility]#: [id number] Admission: 07/04/20 Attend Phys: Alvino Brooke MD Discharge: Date of : 71 Report #: [id number] THIS REPORT FOR: //name// cc: Tash Little NP, Elizabeth NP ~ CC: Tash Brooke DATE OF SERVICE: 07/04/2020 CHIEF COMPLAINT: Chronic pain. HISTORY: The patient is a 45-year-old gentleman who has been morbidly obese. He is in the process of qualifying for gastric bypass. He has a hernia in the abdominal area. He has chronic pain. He states that he has pain all over. He has chronic bilateral foot pain with burning and tingling. His ability to exercise has been curtailed somewhat because of COVID-19. He has used tramadol and occasionally used hydrocodone for pain control. He has been trying to limit his calories with diet. Feels that use of tramadol helps his pain to control 15-20%. He feels that if he had better pain control, he could increase his activity level and improve on his weight loss program. Notes that the pain is worse with "everything." Pain is better when he is sitting or when he has his feet elevated. He describes his discomfort as continuous, steady, constant, burning, shooting, cramping, aching, pulling, throbbing, pounding, sharp, stabbing, and tender. It can rise to the level of 7 on the worst days. Pain involves his right shoulder, upper and mid back, left hip, left foot. PAST MEDICAL HISTORY: 1. Hypertension. 2. Hyperlipidemia. 3. GERD. 4. Type 2 diabetes. 5. Vitamin D deficiency. 6. Morbid obesity. 7. Dorsalgia. 8. Edema. 9. Testicular hypofunction. 10. Sleep apnea. 11. Insomnia. 12. Seborrheic dermatitis. ALLERGIES: No known drug allergies. CURRENT MEDICATIONS: Aspirin 81 mg, BuSpar 10 mg t.i.d., vitamin D, Flexeril 10 mg b.i.d., Lasix 20 mg, Neurontin 300 mg t.i.d., lisinopril, ketoconazole, [place] [address] PAIN MANAGEMENT CONSULTATION Name: MELISSA AGUILERALEXIE Haas Room: [facility]#: [id number] Admission: 07/04/20 Attend Phys: Alvino Brooke MD Discharge: Date of : 71 Report #: [id number] metformin 500 mg b.i.d., metoprolol 25 mg XL, Protonix 40 mg, Zocor 20 mg, tramadol 50 mg, trazodone 100 mg, Valtrex, Effexor XR 37.5. PAST SURGICAL HISTORY: 1. Right hernia repair 2011. 2. Left hernia repair 2015. 3. ACL repair 1999. 4. Right shoulder 07/2017. REVIEW OF SYSTEMS: Recent weight change, fatigue, weakness, headaches, wears glasses, hearing loss, earaches, drainage, chronic sinus problems, sore throat, swollen glands in neck, chest pain, shortness of breath walking or lying flat, asthma, wheezing, painful bowel movements, constipation, abdominal pain, diabetes, excessive thirst, joint pain, joint stiffness, weakness of muscles and joints, muscle pain, cramps, back pain, difficulty walking, rash, itching, recurrent headaches, numbness and tingling sensation, head injury, memory loss, confusion, nervousness, depression, and insomnia, slow to heal. LABORATORY DATA: No new lab values noted. PAIN CLINIC ASSESSMENT/PQRS: 1. Osteoarthritis: The patient has some osteoarthritic changes in shoulders, knees and is not being treated for rheumatoid arthritis. 2. Height 6 feet, weight 430 pounds, BMI to be calculated, saturation 95%, blood pressure 124/61, heart rate 76, respiratory rate 16, room air saturation 97%. 3. Pain intensity 5/10. 4. Fall history: The patient has not fallen in the last 3 months. 5. Blood thinner: The patient is not on a blood thinning medication. 6. Hypertension: The patient is being treated for hypertension. 7. Opioids greater than 6 weeks: The patient receives tramadol. 8. Risk assessment tool: Moderate. 9. Functional assessment tool: Reviewed. 10. Recreational drug use: The patient denies. 11. Tobacco: The patient denies. 12. Alcohol: The patient denies frequent use of alcoholic beverages. PHYSICAL EXAMINATION: GENERAL: The patient is a morbidly obese white male. Appears his stated age. He is alert and oriented x 3. His affect is appropriate. Speech is fluent. HEENT: Normocephalic. The patient has a facial covering in place. NECK: No appreciation for adenopathy. LUNGS: Distant. HEART: Tones distant. ABDOMEN: Protuberant. The patient has a pannus. EXTREMITIES: Upper extremity muscle strength judged to be 5-/5 [place] [address] PAIN MANAGEMENT CONSULTATION Name: HUMA AGUILERA Room: [facility]#: [id number] Admission: 07/04/20 Attend Phys: Alvino Brooke MD Discharge: Date of : 71 Report #: [id number] muscle groups in the upper extremity. Lower extremity muscle strength judged to be 5/5 for the major muscle groups in the lower extremity. Complains of pain in the left lower extremity with numbness, tingling and burning in the area of his foot and toes. The patient has pain and discomfort in the multitude of areas. He states that he would like to continue to increase his level of activity. Pain is making this impossible. He has used tramadol and found that to be helpful. He feels that if he is provided pain medication that he could become more active. States that he would like to live a longer life. He would like to see his grandkids. He feels that he is caught in a conundrum. IMPRESSION: 1. Chronic pain in shoulders, knees, feet, upper and middle back, hip. 2. Hypertension. 3. Hyperlipidemia. 4. Gastroesophageal reflux disease. 5. Type 2 diabetes. 6. Vitamin D deficiency. 7. Morbid obesity. 8. Dorsalgia. 9. Edema. 10. Testicular hypofunction. 11. Sleep apnea. 12. Insomnia. 13. Seborrheic dermatitis. RECOMMENDATIONS: We discussed treatment options with the patient. At this juncture, he feels that he would like to increase his level of activity. States that he has been trying to increase level. The more activity he engages in the more problematic his pain has become. Feels that the tramadol provides 10-15% improvement. He desires to undergo a gastric bypass. We discussed the risks and benefits of opioid therapy. The patient has been educated regarding the problems with opioid medications in morbidly obese patients. He states that he has used hydrocodone in the past with no problems. We will have the patient try hydrocodone 5 mg 1 p.o. b.i.d. and note its efficacy. A script for 60 tablets 1 p.o. daily has been provided. The patient will call us if he has any concerns. We would like to thank you for letting us participate in his care. Hopefully, this will help with some of the pain that he is experiencing and enable him to become more active and pursue his desire to undergo a gastric bypass. He states that he has been reminded by his physician that given the size of a pannus that he has surgery at this juncture may not be as efficacious [place] [address] PAIN MANAGEMENT CONSULTATION Name: HUMA AGUILERA Room: [facility]#: [id number] Admission: 07/04/20 Attend Phys: Alvino Brooke MD Discharge: Date of : 71 Report #: [id number] We would like to thank you for letting us participate in his care. We hope he continues to improve. <ELECTRONICALLY SIGNED> By: Alvino Brooke MD 07/25/20 [id number]. Ramo Brooke MD /[facility]
== END ==
LOC: M.PC 09:34
PROVIDERS: ATTEND Anesthesiology Pain Medicine
DX: G89.29 Other chronic pain (principal); M25.511 Pain in right shoulder; M25.512 Pain in left shoulder; M25.561 Pain in right knee; M25.562 Pain in left knee; M25.551 Pain in right hip; M25.552 Pain in left hip; M79.672 Pain in left foot; M79.671 Pain in right foot; M54.89 Other dorsalgia; E66.01 Morbid (severe) obesity due to excess calories; I10 Essential (primary) hypertension; E78.5 Hyperlipidemia, unspecified; K21.9 Gastro-esophageal reflux disease without esophagitis; E11.9 Type 2 diabetes mellitus without complications; G47.30 Sleep apnea, unspecified; M19.90 Unspecified osteoarthritis, unspecified site; E55.9 Vitamin D deficiency, unspecified; R60.9 Edema, unspecified; G47.00 Insomnia, unspecified; L21.9 Seborrheic dermatitis, unspecified; Z79.891 Long term (current) use of opiate analgesic; Z79.899 Other long term (current) drug therapy

== ENCOUNTER → 2021-03-13 | Outpatient (CLI) | payer OTHER ==
[~2021-03-13] MED LIST changes: +HYDROCODONE-AP1 EA11 PO
== END ==
LOC: M.PC 03-08 10:40
PROVIDERS: ATTEND Anesthesiology Pain Medicine
DX: M25.562 Pain in left knee (principal); M79.671 Pain in right foot; M79.672 Pain in left foot; M25.511 Pain in right shoulder; M25.512 Pain in left shoulder; I10 Essential (primary) hypertension; E78.5 Hyperlipidemia, unspecified; K21.9 Gastro-esophageal reflux disease without esophagitis; E11.9 Type 2 diabetes mellitus without complications; E55.9 Vitamin D deficiency, unspecified; E66.01 Morbid (severe) obesity due to excess calories; G47.30 Sleep apnea, unspecified; Z79.891 Long term (current) use of opiate analgesic; Z79.899 Other long term (current) drug therapy

== ENCOUNTER → 2021-08-14 | Outpatient (CLI) | payer OTHER | LOC: M.PC 08:02 | PROVIDERS: ATTEND Anesthesiology Pain Medicine | DX: M54.59 Other low back pain (principal); M54.2 Cervicalgia; M25.512 Pain in left shoulder; M25.511 Pain in right shoulder; I10 Essential (primary) hypertension; E78.5 Hyperlipidemia, unspecified; K21.9 Gastro-esophageal reflux disease without esophagitis; E11.9 Type 2 diabetes mellitus without complications; E55.9 Vitamin D deficiency, unspecified; M79.672 Pain in left foot; M79.671 Pain in right foot; M25.562 Pain in left knee; M25.561 Pain in right knee; M25.551 Pain in right hip; M25.552 Pain in left hip; G47.00 Insomnia, unspecified; R60.9 Edema, unspecified; G47.30 Sleep apnea, unspecified; L21.9 Seborrheic dermatitis, unspecified; E66.01 Morbid (severe) obesity due to excess calories; Z79.899 Other long term (current) drug therapy ==

== ENCOUNTER → 2021-09-25 | Outpatient (CLI) | payer OTHER | LOC: M.PC 08:53 | PROVIDERS: ATTEND Anesthesiology Pain Medicine | DX: G89.29 Other chronic pain (principal); I10 Essential (primary) hypertension; E78.5 Hyperlipidemia, unspecified; M25.511 Pain in right shoulder; M25.512 Pain in left shoulder; M25.561 Pain in right knee; M25.562 Pain in left knee; M54.59 Other low back pain; M79.673 Pain in unspecified foot; K21.9 Gastro-esophageal reflux disease without esophagitis; E11.9 Type 2 diabetes mellitus without complications; E55.9 Vitamin D deficiency, unspecified; E66.9 Obesity, unspecified; R60.0 Localized edema; G47.30 Sleep apnea, unspecified; G47.00 Insomnia, unspecified; Z79.899 Other long term (current) drug therapy ==